=== PATIENT | male | born 1985 | race Caucasian/White ===

== ENCOUNTER 2017-06-25 01:16 | Emergency (ER) | payer OTHER ==
[~2017-06-25] VITALS: Ht 182.8 cm; Wt 108.9 kg
[~2017-06-25 01:16] MED LIST: KEFLEX500 MG PO; MOBIC15 MG PO
[2017-06-25] MEDS ORDERED: NORCO 5-325 TA1 EACH PO (02:07)
== END 2017-06-25 02:38 | disposition home or self-care (01) ==
LOC: ED 01:16
DX: H16.133 Photokeratitis, bilateral (principal); F17.200 Nicotine dependence, unspecified, uncomplicated; F10.10 Alcohol abuse, uncomplicated; W89.8XXA Exposure to other man-made visible and ultraviolet light, initial encounter; Y93.89 Activity, other specified; Y92.215 Trade school as the place of occurrence of the external cause; Y99.0 Civilian activity done for income or pay